=== PATIENT | female | born 1935 | race Caucasian/White ===

== ENCOUNTER 2016-09-22 16:59 | Emergency (ER) | payer MEDICARE ==
[~2016-09-22] VITALS: Ht 154.9 cm; Wt 48.9 kg
[~2016-09-22 16:59] MED LIST: NO KNOWN MEDS
[2016-09-22 17:02] VITALS: Ht 154.9 cm; Wt 48.9 kg
--- OUTSIDE RECORDS SUMMARY | 2016-09-22 17:03 | XMS REPORT | Continuity of Care Document ---
Author Author Arnulfo VASQUEZ, [facility] Address [address] [place] [id number] Phone Unavailable Payers Payer name Insurance type Covered constitution party ID Authorization(s) Unknown Problems Condition Effective Dates (start - stop) Clinical Status Other dyspnea and respiratory abnormality - *Worse Pneumonia - *Acute COPD - *Stable Thrush - *Acute Sepsis - *Resolved COPD - *Stable Pneumonia Vaccine - Pneumonia - Improved Cellulitis and abscess of leg, except foot - *Acute Edema - *Chronic Skin ulcer of ankle - *Acute Leg pain, left - *Acute Family History Family Member Diagnosis Age At Onset Status (Unknown) heavy smoker Yes Social History Social History Element Description Quantity Unknown Allergies, Adverse Reactions, Alerts Substance Reaction Severity Status Unknown Medications Medication Instructions Dosage Effective Dates (start - stop) Status Advair Diskus 250 mcg-50 mcg/dose powder for inhalation inhale 1 puff by inhalation route 2 times every day in the morning and evening approximately 12 hours apart 0 - Active cephalexin 500 mg capsule take 1 capsule (500MG) by oral route every 8 hours 500 MG - Active Lasix 20 mg tablet take 1 tablet (20MG) by oral route every day 20 MG - Active Immunizations Vaccine Date Status Comments Pneumo (2 yrs or older)(PPV) completed tetanus toxoid completed - Note: tetanus toxoid 0.5cc IM given Results Test Name Date and Time Measure Units Reference Range Abnormal Flag Comments Unknown Vital Signs Date / Time: Height Weight Pulse Rate Blood Pressure Temperature /09:22:00 100.00 lbs 115 /min 108/56 mm[Hg] 98.1 F Procedures Procedure Date Unknown Encounters Encounter Location Date Patient Visit [facility] [place][note 3] Patient Visit [facility] Patient Visit [facility] Advance Directives Directive Effective Date Unknown
--- OUTSIDE RECORDS SUMMARY | 2016-09-22 17:03 | XMS REPORT | Continuity of Care Document ---
Author Author [facility] Organization [facility] Address Unknown Phone Unavailable Allergies Medications Problems Procedures Results Encounters ACCT No. Visit Date/Time Discharge Status Pt. Type Provider Facility Loc./Unit Complaint [id number] 08/22/2013 10:43:00 08/22/2013 23 :59:59 CLS Outpatient [id number] 08/06/2013 13:45:00 08/06/2013 23 :59:59 CLS Outpatient [id number] 07/21/2013 09:18:00 07/21/2013 23 :59:59 CLS Outpatient
--- OUTSIDE RECORDS SUMMARY | 2016-09-22 17:03 | XMS REPORT | Referral Summary ---
Author Author [facility] Organization [facility] Address Unknown Phone Unavailable Care Team Providers Care Customer Solutions Specialist Name Role Phone Yahaira Asif Primary Care Physician [phone] Encounter VC Date(s): 10/15/15 - 10/15/15 [facility], [address] [place] [address]- [place] Discharge Disposition: 01-Home or Self Care Attending Physician: Behzad Asif MD Admitting Physician: Behzad Asif MD Vital Signs Most recent to 1 oldest [Reference Range]: Temperature Tympanic 36.7 degC [36.6-38.1 degC] (10/15/15 8:50 AM) Peripheral Pulse 76 bpm Rate [60-100 bpm] (10/15/15 8:50 AM) Blood Pressure 138/80 mmHg [90-140/60-90 mmHg] (10/15/15 8:50 AM) Mean Arterial 99 mmHg Pressure, Cuff (10/15/15 8:50 AM) Problem List Condition Effective Dates Status Health Status Informant Adult idiopathic Active generalized osteoporosis(Confirm ed) At high risk for Active pneumonia(Confirmed) Bronchiectasis(Confi Active rmed) Cellulitis of left Active leg(Confirmed) Elevated Active BP(Confirmed) Hypercholesterolemia Active (Confirmed) Lymphedema(Confirmed Active ) Venous stasis Active dermatitis(Confirmed ) Pneumonia(Confirmed) Active Sepsis bilateral 05/23/13 Resolved crytpogenic, organizing pneumonia(Confirmed) Loss of Active weight(Confirmed) Allergies, Adverse Reactions, Alerts Substance Reaction Severity Status acetaminophen hives Active HYDROcodone hives Active Medications Daily Multivitamins oral tablet 1 tabs, Oral, Daily, One a Day for Women, 0 Refill(s) Start Date: 10/15/15 Status: Ordered ibuprofen 200 mg oral tablet 1 tabs, Oral, Daily, as needed for headache, 0 Refill(s) Start Date: 03/08/14 Status: Ordered Vitamin D3 2,000 Intl_Units, Oral, Daily, 0 Refill(s) Start Date: 09/27/14 Status: Ordered Results No data available for this section Immunizations Vaccine Date Refusal Reason influenza virus vaccine, inactivated 06/04/15 influenza virus vaccine, inactivated1 03/08/14 pneumococcal 13-valent conjugate vaccine 09/03/14 pneumococcal 23-polyvalent vaccine 08/06/13 tetanus toxoid 08/22/13 1Result Comment: [03/08/2014] See scanned document Procedures Procedure Date Related Diagnosis Body Site Vaginal hysterectomy1981 1bilateral oophorectomy; reason for the hysterectomy for fibroids Social History Social History Type Response Smoking Status Former smoker; Type: Cigarettes1 1quit 30 yrs ago Assessment and Plan Extracted from: Title: Ambulatory Patient Education Author: Behzad Asif MD Date: 10/14 Family Medicine Cholesterol Cholesterol is a white, waxy, fat-like substance needed by your body in small amounts. The liver makes all the cholesterol you need. Cholesterol is carried from the liver by the blood through the blood vessels. Deposits of cholesterol ( plaque) may build up on blood vessel south. These make the arteries narrower and stiffer. Cholesterol plaques increase the risk for heart attack and stroke. You cannot feel your cholesterol level even if it is very high. The only way to know it is high is with a blood test. Once you know your cholesterol levels, you should keep a record of the test results. Work with your health care provider to keep your levels in the desired range. WHAT DO THE RESULTS MEAN? Total cholesterol is a rough measure of all the cholesterol in your blood. LDL is the so-called bad cholesterol. This is the type that deposits cholesterol in the south of the arteries. You want this level to be low. HDL is the good cholesterol because it cleans the arteries and carries the LDL away. You want this level to be high. Triglycerides are fat that the body can either burn for energy or store. High levels are closely linked to heart disease. WHAT ARE THE DESIRED LEVELS OF CHOLESTEROL? Total cholesterol below 200. LDL below 100 for people at risk, below 70 for those at very high risk. HDL above 50 is good, above 60 is best. Triglycerides below 150. HOW CAN I LOWER MY CHOLESTEROL? Diet. Follow your diet programs as directed by your health care provider. Choose fish or white meat chicken and turkey, roasted or baked. Limit fatty cuts of red meat, fried foods, and processed meats, such as sausage and lunch meats. Eat lots of fresh fruits and vegetables. Choose whole grains, beans, pasta, potatoes, and cereals. Use only small amounts of olive, corn, or canola oils. Avoid butter, mayonnaise, shortening, or palm kernel oils. Avoid foods with trans fats. Drink skim or nonfat milk and eat low-fat or nonfat yogurt and cheeses. Avoid whole milk, cream, ice cream, egg yolks, and full-fat cheeses. Healthy desserts include zabrina food cake, lisa snaps, animal crackers, hard candy, popsicles, and low-fat or nonfat frozen yogurt. Avoid pastries, cakes, pies, and cookies. Exercise. Follow your exercise programs as directed by your health care provider. A regular program helps decrease LDL and raise HDL. A regular program helps with weight control. Do things that increase your activity level like gardening, walking, or taking the stairs. Ask your health care provider about how you can be more active in your daily life. Medicine. Take medicine only as directed by your health care provider. Medicine may be prescribed by your health care provider to help lower cholesterol and decrease the risk for heart disease. If you have several risk factors, you may need medicine even if your levels are normal. This information is not intended to replace advice given to you by your health care provider. Make sure you discuss any questions you have with your health care provider. Document Released: 02/01/2002 Document Revised: 09/23/2014 Document Reviewed: [employer] Patient Information 2015 [employer] [facility]. No follow up information was provided. Extracted from: Title: multiple medical problems Author: Behzad Asif MD Date: 10/15/15 Impression and Plan Diagnosis Lymphedema (HQI63-CL I89.0, Working, Medical). Venous stasis dermatitis (MQW95-LZ I87.2, Working, Medical). Bronchiectasis (OLI00-GX J47.9, Working, Medical). Elevated BP (GSM69-NC R03.0, Working, Medical). Hypercholesterolemia (ARG03-MB E78.0, Working, Medical). 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 Plan: 1) Wear compression stockings, or elevate your legs frequently, or consider venous surgery on your left lower leg. 2) May continue your present meds. 3) See me in 2 months and as needed.. Orders Orders (Selected) Outpatient Orders Ordered Office Visit Level 4 Est 90771: . Dx/Order Association Plan: Diagnosis: Adult idiopathic generalized osteoporosis Comment: Ordered: Office Visit Level 4 Est 44861; 10/15/15 9:08:00 CDT, Lymphedema | Venous stasis dermatitis | Adult idiopathic generalized osteoporosis | Elevated BP | Bronchiectasis Diagnosis: Bronchiectasis Comment: Ordered: Office Visit Level 4 Est [id number]; 10/15/15 9:08:00 CDT, Lymphedema | Venous stasis dermatitis | Adult idiopathic generalized osteoporosis | Elevated BP | Bronchiectasis Diagnosis: Elevated BP Comment: Ordered: Office Visit Level 4 Est 45060; 10/15/15 9:08:00 CDT, Lymphedema | Venous stasis dermatitis | Adult idiopathic generalized osteoporosis | Elevated BP | Bronchiectasis Diagnosis: Hypercholesterolemia Comment: Diagnosis: Lymphedema Comment: Ordered: Office Visit Level 4 Est 55496; 10/15/15 9:08:00 CDT, Lymphedema | Venous stasis dermatitis | Adult idiopathic generalized osteoporosis | Elevated BP | Bronchiectasis Diagnosis: Venous stasis dermatitis Comment: Ordered: Office Visit Level 4 Est 20204; 10/15/15 9:08:00 CDT, Lymphedema | Venous stasis dermatitis | Adult idiopathic generalized osteoporosis | Elevated BP | Bronchiectasis End of Orders ."
--- OUTSIDE RECORDS SUMMARY | 2016-09-22 17:04 | XMS REPORT | Referral Summary ---
Author Author [facility], [facility] Organization [facility] Address Unknown Phone Unavailable Care Team Providers Care Engraver Set Up Operator Name Role Phone Yahaira Asif Primary Care Physician [phone] Encounter VC Date(s): 03/08/16 - 03/08/16 [facility], [address] [place] [address]- Discharge Diagnosis: Cellulitis of skin Discharge Diagnosis: Seborrheic keratosis Discharge Disposition: 01-Home or Self Care Attending Physician: Behzad Asif MD Admitting Physician: Behzad Asif MD Vital Signs Most recent to 1 oldest [Reference Range]: Temperature Tympanic 36.4 degC [36.6-38.1 degC] *LOW* (03/08/16 2:12 PM) Peripheral Pulse 72 bpm Rate [60-100 bpm] (03/08/16 2:12 PM) Blood Pressure 142/74 mmHg [90-140/60-90 mmHg] *HI* (03/08/16 2:12 PM) Problem List Condition Effective Dates Status Health Status Informant Adult idiopathic Active generalized osteoporosis(Confirm ed) At high risk for Active pneumonia(Confirmed) Bronchiectasis(Confi Active rmed) Cellulitis of left Active leg(Confirmed) Elevated Active BP(Confirmed) Lymphedema(Confirmed Active ) Venous stasis Active dermatitis(Confirmed ) Pneumonia(Confirmed) Active Hypercholesterolemia Active (Confirmed) Sepsis bilateral 05/23/13 Resolved crytpogenic, organizing pneumonia(Confirmed) Loss of Active weight(Confirmed) Allergies, Adverse Reactions, Alerts Substance Reaction Severity Status acetaminophen hives Active HYDROcodone hives Active Medications Daily Multivitamins oral tablet 1 tabs, Oral, Daily, One a Day for Women, 0 Refill(s) Start Date: 10/15/15 Status: Ordered erythromycin 0.5% ophthalmic ointment See Instructions, Apply to the skin infection beside left eye 4 times daily X 10 days, # 3 g, 1 Refill(s), Pharmacy: [facility] #[id number] Start Date: 03/08/16 Stop Date: 03/18/16 Status: Ordered ibuprofen 200 mg oral tablet 1 tabs, Oral, Daily, as needed for headache, 0 Refill(s) Start Date: 03/08/14 Status: Ordered Prednisol 1% ophthalmic solution 1 drops, Eye-Right, QID, 0 Refill(s) Start Date: 03/04/16 Status: Ordered Vitamin D3 2,000 Intl_Units, Oral, Daily, 0 Refill(s) Start Date: 09/27/14 Status: Ordered Results No data available for this section Immunizations Vaccine Date Refusal Reason influenza virus vaccine, inactivated 03/04/16 influenza virus vaccine, inactivated 06/04/15 influenza virus vaccine, inactivated1 03/08/14 pneumococcal 13-valent conjugate vaccine 09/03/14 pneumococcal 23-polyvalent vaccine 08/06/13 tetanus toxoid 08/22/13 1Result Comment: [03/08/2014] See scanned document Procedures Procedure Date Related Diagnosis Body Site Corneal transplant1 02/04/16 Cataract extraction and insertion of 2016 intraocular lens2 Vaginal hysterectomy3 1981 1OD 2OD--December 24, 2015 3bilateral oophorectomy; reason for the hysterectomy for fibroids Social History Social History Type Response Smoking Status Former smoker; Type: Cigarettes1 1quit 30 yrs ago Assessment and Plan Extracted from: Title: Ambulatory Patient Education Author: Behzad Asif MD Date: Home Health Care Cellulitis Cellulitis is an infection of the skin and the tissue beneath it. The infected area is usually red and tender. Cellulitis occurs most often in the arms and lower legs. CAUSES Cellulitis is caused by bacteria that enter the skin through cracks or cuts in the skin. The most common types of bacteria that cause cellulitis are staphylococci and streptococci. SIGNS AND SYMPTOMS Redness and warmth. Swelling. Tenderness or pain. Fever. DIAGNOSIS Your health care provider can usually determine what is wrong based on a physical exam. Blood tests may also be done. TREATMENT Treatment usually involves taking an antibiotic medicine. HOME CARE INSTRUCTIONS Take your antibiotic medicine as directed by your health care provider. Finish the antibiotic even if you start to feel better. Keep the infected arm or leg elevated to reduce swelling. Apply a warm cloth to the affected area up to 4 times per day to relieve pain. Take medicines only as directed by your health care provider. Keep all follow-up visits as directed by your health care provider. SEEK MEDICAL CARE IF: You notice red streaks coming from the infected area. Your red area gets larger or turns dark in color. Your bone or joint underneath the infected area becomes painful after the skin has healed. Your infection returns in the same area or another area. You notice a swollen bump in the infected area. You develop new symptoms. You have a fever. SEEK IMMEDIATE MEDICAL CARE IF: You feel very sleepy. You develop vomiting or diarrhea. You have a general ill feeling (malaise) with muscle aches and pains. MAKE SURE YOU: Understand these instructions. Will watch your condition. Will get help right away if you are not doing well or get worse. This information is not intended to replace advice given to you by your health care provider. Make sure you discuss any questions you have with your health care provider. Document Released: 02/16/2006 Document Revised: 05/30/2015 Document Reviewed: [employer] Interactive Patient Education 2016 [employer] No follow up information was provided. Extracted from: Title: cellulitis, SK Author: Behzad Asif MD Date: 03/08/16 Impression and Plan Diagnosis Cellulitis of skin (THI64-TB L03.211, Discharge, Medical). Seborrheic keratosis (XQX30-HY L82.1, Discharge, Medical). Plan: 1) Erythromycin eye ointment prescribed to the skin near your left eye QID X 10 days. 2) Continue your present meds otherwise. 3) See me as scheduled. 4) No treatment for the SK is indicated at this time.. Orders Orders (Selected) Outpatient Orders Ordered Office Visit Level 3 Est 45526: Prescriptions Prescribed erythromycin 0.5% ophthalmic ointment: See Instructions, Apply to the skin infection beside left eye 4 times daily X 10 days, 3 g, 1 Refill(s). Dx/Order Association Plan: Diagnosis: Cellulitis of skin Comment: Ordered: Office Visit Level 3 Est 77730; 03/08/16 17:15:00 CDT, Cellulitis of skin | Seborrheic keratosis Diagnosis: Seborrheic keratosis Comment: Ordered: Office Visit Level 3 Est 39881; 03/08/16 17:15:00 CDT, Cellulitis of skin | Seborrheic keratosis Additional Orders: Comment: Ordered: erythromycin 0.5% ophthalmic ointment,See Instructions, Apply to the skin infection beside left eye 4 times daily X 10 days, # 3 g, 1 Refill(s), Pharmacy: [facility] #[id number] End of Orders ."
--- OUTSIDE RECORDS SUMMARY | 2016-09-22 17:04 | XMS REPORT | Referral Summary ---
Author Author [facility], [facility] Medicine Organization [facility] Address Unknown Phone Unavailable Care Team Providers Care Material Liaison Name Role Phone Yahaira Asif Primary Care Physician [phone] Encounter VC Date(s): 06/04/15 - 06/04/15 [facility], [address] [place] [id number]- [place] Discharge Disposition: 01-Home or Self Care Attending Physician: Behzad Asif MD Admitting Physician: Behzad Asif MD Vital Signs Most recent to 1 oldest [Reference Range]: Temperature Tympanic 36.6 degC [36.6-38.1 degC] (06/04/15 10:41 AM) Peripheral Pulse 70 bpm Rate [60-100 bpm] (06/04/15 10:41 AM) Blood Pressure 142/78 mmHg [90-140/60-90 mmHg] *HI* (06/04/15 10:41 AM) SpO2 96 % (06/04/15 10:41 AM) Problem List Condition Effective Dates Status [...] acetaminophen hives Active HYDROcodone hives Active Medications ibuprofen 200 mg oral tablet 1 tabs, [...] Patient Education Author: Behzad Asif MD Date: 06/04 Family Medicine Bronchiectasis Bronchiectasis is a condition in which the airways (bronchi) are damaged and widened. This makes it difficult for the lungs to get rid of mucus. As a result , mucus gathers in the airways, and this often leads to lung infections. Infection can cause inflammation in the airways, which may further weaken and damage the bronchi. CAUSES Bronchiectasis may be present at (congenital) or may develop later in life. Sometimes there is no apparent cause. Some common causes include: Cystic fibrosis. Recurrent lung infections (such as pneumonia, tuberculosis, or fungal infections). Foreign bodies or other blockages in the lungs. Breathing in fluid, food, or other foreign objects (aspiration). SIGNS AND SYMPTOMS Common symptoms include: A daily cough that brings up mucus and lasts for more than 3 weeks. Frequent lung infections (such as pneumonia, tuberculosis, or fungal infections). Shortness of breath and wheezing. Weakness and fatigue. DIAGNOSIS Various tests may be done to help diagnose bronchiectasis. Tests may include: Chest X-rays or CT scans. Breathing tests to help determine how your lungs are working. Sputum cultures to check for infection. Blood tests and other tests to check for related diseases or causes, such as cystic fibrosis. TREATMENT Treatment varies depending on the severity of the condition. Medicines may be given to loosen the mucus to be coughed up (expectorants), to relax the muscles of the air passages (bronchodilators), or to prevent or treat infections ( antibiotics). Physical therapy methods may be recommended to help clear mucus from the lungs. For severe cases, surgery may be done to remove the affected part of the lung. HOME CARE INSTRUCTIONS Get plenty of rest. Only take [id number]-[id number] or prescription medicines as directed by your health care provider. If antibiotic medicines were prescribed, take them as directed. Finish them even if you start to feel better. Avoid sedatives and antihistamines unless otherwise directed by your health care provider. These medicines tend to thicken the mucus in the lungs. Perform any breathing exercises or techniques to clear the lungs as directed by your health care provider. Drink enough fluids to keep your urine clear or pale yellow. Consider using a cold steam vaporizer or humidifier in your room or home to help loosen secretions. If the cough is worse at night, try sleeping in a semi-upright position in a recliner or using a couple of pillows. Avoid cigarette smoke and lung irritants. If you smoke, quit. Stay inside when pollution and ozone levels are high. Stay current with vaccinations and immunizations. Follow up with your health care provider as directed. SEEK MEDICAL CARE IF: You cough up more thick, discolored mucus (sputum) that is yellow to green in color. You have a fever or persistent symptoms for more than 23 days. You cannot control your cough and are losing sleep. SEEK IMMEDIATE MEDICAL CARE IF: You cough up blood. You have chest pain or increasing shortness of breath. You have pain that is getting worse or is uncontrolled with medicines. You have a fever and your symptoms suddenly get worse. MAKE SURE YOU: Understand these instructions. Will watch your condition. Will get help right away if you are not doing well or get worse. Document Released: 03/05/2008 Document Revised: 05/14/2014 Document Reviewed: [facility] Patient Information [address] [facility]. This information is not intended to replace advice given to you by your health care provider. Make sure you discuss any questions you have with your health care provider. Preventive Medicine Bone Health Our bones do many things. They provide structure, protect organs, anchor muscles , and store calcium. Adequate calcium in your diet and weight-bearing physical activity help build strong bones, improve bone amounts, and may reduce the risk of weakening of bones (osteoporosis) later in life. PEAK BONE MASS By age 20, the average woman has acquired most of her skeletal bone mass. A large decline occurs in older adults which increases the risk of osteoporosis. In women this occurs around the time of menopause. It is important for young girls to reach their peak bone mass in order to maintain bone health throughout life. A person with high bone mass as a young adult will be more likely to have a higher bone mass later in life. Not enough calcium consumption and physical activity early on could result in a failure to achieve optimum bone mass in adulthood. OSTEOPOROSIS Osteoporosis is a disease of the bones. It is defined as low bone mass with deterioration of bone structure. Osteoporosis leads to an increase risk of fractures with falls. These fractures commonly happen in the wrist, hip, and spine. While men and women of all ages and background can develop osteoporosis, some of the risk factors for osteoporosis are: Female. White. Postmenopausal. Older adults. Small in body size. Eating a diet low in calcium. Physically inactive. Smoking. Use of some medications. Family history. CALCIUM Calcium is a mineral needed by the body for healthy bones, teeth, and proper function of the heart, muscles, and nerves. The body cannot produce calcium so it must be absorbed through food. Good sources of calcium include: Dairy products (low fat or nonfat milk, cheese, and yogurt). Dark green leafy vegetables (bok jim and broccoli). Calcium fortified foods (orange juice, cereal, bread, soy beverages, and tofu products). Nuts (almonds). Recommended amounts of calcium vary for individuals. RECOMMENDED CALCIUM INTAKES Age and Amount in mg per day Children 1 to 3 years / 700 mg Children 4 to 8 years / 1,000 mg Children 9 to 13 years / 1,300 mg Teens 14 to 18 years / 1,300 mg Adults 19 to 50 years / 1,000 mg Adult women 51 to 70 years / 1,200 mg Adults 71 years and older / 1,200 mg and teens / 1,300 mg and adults / 1,000 mg Vitamin D also plays an important role in healthy bone development. Vitamin D helps in the absorption of calcium. WEIGHT-BEARING PHYSICAL ACTIVITY Regular physical activity has many positive health benefits. Benefits include strong bones. Weight-bearing physical activity early in life is important in reaching peak bone mass. Weight-bearing physical activities cause muscles and bones to work against gravity. Some examples of weight bearing physical activities include: Walking, jogging, or running. Field Hockey. Jumping rope. Dancing. Soccer. Tennis or Racquetball. Stair climbing. Basketball. Hiking. Weight lifting. Aerobic fitness classes. Including weight-bearing physical activity into an exercise plan is a great way to keep bones healthy. Adults: Engage in at least 30 minutes of moderate physical activity on most, preferably all, days of the week. Children: Engage in at least 60 minutes of moderate physical activity on most, preferably all, days of the week. FOR MORE INFORMATION [place] Department of Agriculture, Center for Nutrition Policy and Promotion: www.cnpp.usda.gov National Osteoporosis Foundation: www.nof.org Document Released: 07/29/2004 Document Revised: 09/03/2013 Document Reviewed: [employer] Patient Information 2015 [employer]. This information is not intended to replace advice given to you by your health care provider. Make sure you discuss any questions you have with your health care provider. No follow up information was provided. Extracted from: Title: venous stasis dermatitis, Author: Behzad Asif MD Date: 06/04/15 lymphedema, elevated BP, osteoporosis Impression and Plan Diagnosis Lymphedema (NEA89-XT I89.0, Working, Medical). Venous stasis dermatitis (JXY00-DA I87.2, Working, Medical). Bronchiectasis (EWX19-OT J47.9, Working, Medical). Elevated BP (GWD86-PJ R03.0, Working, Medical). Hypercholesterolemia (BRR29-MA E78.0, Working, Medical). 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 Plan: 1) I recommend restarting the Alendronate for osteoporosis. 2) I recommend wearing your compression stockings during the day. 3) I recommend sanding your foot calluses twice a week. 4) Continue your same meds otherwise. 5) See me for a physical in 3 months. 6) Flu shot given today. . Orders Orders (Selected) Outpatient Orders Ordered Office Visit Level 4 Est 15635: . Dx/Order Association Plan: Diagnosis: Adult idiopathic generalized osteoporosis Comment: Ordered: Office Visit Level 4 Est 70193; 06/04/15 11:19:00 COLLET DRILLER, Lymphedema | Venous stasis dermatitis | Elevated BP | Adult idiopathic generalized osteoporosis Diagnosis: Bronchiectasis Comment: Diagnosis: Elevated BP Comment: Ordered: Office Visit Level 4 Est [id number]; 06/04/15 11:19:00 COLLET DRILLER, Lymphedema | Venous stasis dermatitis | Elevated BP | Adult idiopathic generalized osteoporosis Diagnosis: Hypercholesterolemia Comment: Diagnosis: Lymphedema Comment: Ordered: Office Visit Level 4 Est [id number]; 06/04/15 11:19:00 COLLET DRILLER, Lymphedema | Venous stasis dermatitis | Elevated BP | Adult idiopathic generalized osteoporosis Diagnosis: Venous stasis dermatitis Comment: Ordered: Office Visit Level 4 Est [id number]; 06/04/15 11:19:00 COLLET DRILLER, Lymphedema | Venous stasis dermatitis | Elevated BP | Adult idiopathic generalized osteoporosis End of Orders ."
--- OUTSIDE RECORDS SUMMARY | 2016-09-22 17:04 | XMS REPORT | Referral Summary ---
Author Author [facility] Organization [facility] Address Unknown Phone Unavailable Care Team Providers Care Lace Machine Operator Name Role Phone Yahaira Asif Primary Care Physician [phone] Encounter VC Date(s): 09/09/15 - 09/09/15 [facility], [address] [place] [phone] Discharge Disposition: 01-Home or Self Care Attending Physician: Behzad Asif MD Admitting Physician: Behzad Asif MD Vital Signs Most recent to 1 oldest [Reference Range]: Temperature Tympanic 36.5 degC [36.6-38.1 degC] *LOW* (09/09/15 8:58 AM) Peripheral Pulse 76 bpm Rate [60-100 bpm] (09/09/15 8:58 AM) Blood Pressure 168/72 mmHg [90-140/60-90 mmHg] *HI* (09/09/15 8:58 AM) Problem List Condition Effective Dates Status [...] Refill(s) Start Date: 09/27/14 Status: Ordered Results Hematology Most recent to 1 oldest [Reference Range]: WBC [4.8-10.8 5.1 10*3/uL 10*3/uL] (09/09/15 9:56 AM) RBC [4.00-5.20] 4.73 (09/09/15 9:56 AM) Hgb [12.0-16.0 14.0 gm/dL gm/dL] (09/09/15 9:56 AM) Hct [37.0-47.0 %] 42.7 % (09/09/15 9:56 AM) MCV [82.0-99.0 fL] 90.3 fL (09/09/15 9:56 AM) MCH [27.0-32.0 pg] 29.6 pg (09/09/15 9:56 AM) MCHC [32.0-36.0 32.8 gm/dL gm/dL] (09/09/15 9:56 AM) RDW [11.5-14.5 %] 13.5 % (09/09/15 9:56 AM) Platelet [150-400 164 10*3/uL 10*3/uL] (09/09/15 9:56 AM) MPV [8.8-14.8 fL] 9.6 fL (09/09/15 9:56 AM) Immature 0.0 % Granulocytes (09/09/15:56 AM) [0.0-1.0 %] Neutrophils [51-75 61 % %] (09/09/15 9:56 AM) Lymphocytes [20-46 26 % %] (09/09/15 9:56 AM) Monocytes [4-11 %] 11 % (09/09/15 9:56 AM) Eosinophils [0-4 %] 2 % (09/09/15 9:56 AM) Basophils [0-2 %] 1 % (09/09/15 9:56 AM) Neutro Absolute 3.09 10*3 [1.90-7.00 10*3] (09/09/15 9:56 AM) Lymph Absolute 1.33 10*3 [0.80-3.30 10*3] (09/09/15 9:56 AM) [place] Absolute 0.54 10*3 [0.30-1.00 10*3] (09/09/15 9:56 AM) Eos Absolute 0.12 10*3 [0.00-0.50 10*3] (09/09/15 9:56 AM) Baso Absolute 0.03 10*3 [0.00-0.20 10*3] (09/09/15 9:56 AM) Chemistry Most recent to 1 oldest [Reference Range]: Sodium Lvl [135-144 139 mEq/L mEq/L] (09/09/15 9:56 AM) Potassium Lvl 3.9 mEq/L [3.5-5.2 mEq/L] (09/09/15 9:56 AM) Chloride [99-111 99 mEq/L mEq/L] (09/09/15 9:56 AM) CO2 [22-31 mEq/L] 31 mEq/L (09/09/15 9:56 AM) AGAP [3-20] 9 (09/09/15 9:56 AM) BUN [10-20 mg/dL] 17 mg/dL (09/09/15 9:56 AM) Glucose Lvl [70-99 63 mg/dL mg/dL] *LOW* (09/09/15 9:56 AM) Creatinine Lvl 0.77 mg/dL [0.57-1.11 mg/dL] (09/09/15 9:56 AM) eGFR [>60 mL/min] >60 mL/min 1 (09/09/15 9:56 AM) Calcium Lvl 9.2 mg/dL [8.9-10.5 mg/dL] (09/09/15 9:56 AM) Albumin Lvl [3.4-4.8 4.0 gm/dL gm/dL] (09/09/15 9:56 AM) Total Protein 5.8 gm/dL [6.2-8.1 gm/dL] *LOW* (09/09/15 9:56 AM) Globulin [1.8-4.0 1.8 gm/dL gm/dL] (09/09/15 9:56 AM) ALT [0-55 U/L] 11 U/L (09/09/15 9:56 AM) AST [5-34 U/L] 19 U/L (09/09/15 9:56 AM) Alk Phos [40-150 99 U/L U/L] (09/09/15 9:56 AM) Bili Total [0.2-1.2 0.5 mg/dL mg/dL] (09/09/15 9:56 AM) Chol [0-199 mg/dL] 200 mg/dL *HI* (09/09/15 9:56 AM) Trig [0-149 mg/dL] 113 mg/dL (09/09/15 9:56 AM) HDL [40-84 mg/dL] 62 mg/dL (09/09/15 9:56 AM) LDL [0-130 mg/dL] 115 mg/dL (09/09/15 9:56 AM) VLDL Cholesterol 23 mg/dL [0-28 mg/dL] (09/09/15 9:56 AM) Cardiac Risk 3.2 [0.0-5.0] (09/09/15 9:56 AM) 1Result Comment: Multiply eGFR results by 1.21 for race. Urinalysis Most recent to 1 oldest [Reference Range]: UA Color Yellow (09/09/15 10:15 AM) UA Appear Cloudy *ABN* (09/09/15 10:15 AM) UA pH [5.0-8.0] 7.5 (09/09/15 10:15 AM) UA Leuk Est Pos 2+ [Negative] *ABN* (09/09/15 10:15 AM) UA Nitrite Negative [Negative] (09/09/15 10:15 AM) UA Protein Negative [Negative] (09/09/15 10:15 AM) UA Glucose Negative [Negative] (09/09/15 10:15 AM) UA Ketones Negative [Negative] (09/09/15 10:15 AM) UA Urobilinogen 0.2 mg/dL [<1.0 mg/dL] (09/09/15 10:15 AM) UA Bili [Negative] Negative (09/09/15 10:15 AM) UA Blood [Negative] Pos 1+ *ABN* (09/09/15 10:15 AM) UA Spec Grav 1.012 [1.003-1.030] (09/09/15 10:15 AM) Type Clean Catch (09/09/15 10:15 AM) UA WBC [0-4] 5-10 *ABN* (09/09/15 10:15 AM) UA RBC [0-4] 0-4 (09/09/15 10:15 AM) Epithelial Cells 5-10 (09/09/15 10:15 AM) UA Hyal Cast [0-3] 1-3 (09/09/15 10:15 AM) Immunizations Vaccine Date Refusal Reason influenza virus [...] Patient Education Author: Behzad Asif MD Date: 09/08 Family Medicine Bronchiectasis Bronchiectasis is a condition [...] INSTRUCTIONS Get plenty of rest. Only take [id number] or prescription medicines as directed by your [...] with your health care provider. Document Released: 03/05/2008 Document Revised: 05/14/2014 Document Reviewed: [facility] Patient Information 2015 [employer]. Preventive Medicine Bone Health Our bones do [...] and Promotion: www.cnpp.usda.gov National Osteoporosis Foundation: www.nof.org This information is not intended to replace advice given to you by your health care provider. Make sure you discuss any questions you have with your health care provider. Document Released: 07/29/2004 Document Revised: 09/03/2013 Document Reviewed: [employer] Patient Information 2015 [employer] [facility]. No follow up information was provided. Extracted from: Title: CRMMP Author: Behzad Asif MD Date: 09/09/15 Impression and Plan Diagnosis Bronchiectasis (IQL31-CE J47.9, Working, Medical). Lymphedema (WHR75-WS I89.0, Working, Medical). Elevated BP (MLG14-EU R03.0, Working, Medical). Hypercholesterolemia (RKM72-QJ E78.0, Working, Medical). Adult idiopathic generalized osteoporosis (XOM88-NT M81.8, Working, Medical). Venous stasis dermatitis (FXK89-CN I87.2, Working, Medical). Colon cancer screening (HBU98-QF Z12.11, Working, Medical). Plan: 1) I recommend the use of analilia wraps to both lower legs: on in the AM and off at bedtime. 2) Continue to use Vaseline to the skin of your lower legs daily, to help reduce skin cracking and bleeding. 3) You weren't interested in mammograms or another colonoscopy. 4) You weren't interested in medication for your osteoporosis at this time. 5) I recommend getting the Shingles vaccine and the Twinrix (hepatitis A and B ) vaccine series at [facility]. 6) Nonfasting lab ordered today. 7) Continue your present meds. 8) See me in 3 months for re-evaluation of your BP. Check your BP twice a week somewhere and write these numbers down and bring to your appointment. 9) Healthy diet and daily exercise helps most things.. Orders Orders (Selected) Outpatient Orders Ordered Office Visit Level 5 Est 53289: Future (On Hold) CBC w/ Differential: CMP: Fasting Lipid Profile: Occult Blood X 3, Stool: Routine Urinalysis: Vitamin D 25 OH: . Dx/Order Association Plan: Diagnosis: Adult idiopathic generalized osteoporosis Comment: Ordered: Office Visit Level 5 Est 45521; 09/09/15 8:59:00 CDT, Adult idiopathic generalized osteoporosis | Bronchiectasis | Elevated BP | Hypercholesterolemia | Lymphedema Diagnosis: Bronchiectasis Comment: Ordered: Office Visit Level 5 Est 08075; 09/09/15 8:59:00 CDT, Adult idiopathic generalized osteoporosis | Bronchiectasis | Elevated BP | Hypercholesterolemia | Lymphedema Diagnosis: Colon cancer screening Comment: Diagnosis: Elevated BP Comment: Ordered: Office Visit Level 5 Est 04603; 09/09/15 8:59:00 CDT, Adult idiopathic generalized osteoporosis | Bronchiectasis | Elevated BP | Hypercholesterolemia | Lymphedema Diagnosis: Hypercholesterolemia Comment: Ordered: Office Visit Level 5 Est 88643; 09/09/15 8:59:00 CDT, Adult idiopathic generalized osteoporosis | Bronchiectasis | Elevated BP | Hypercholesterolemia | Lymphedema Diagnosis: Lymphedema Comment: Ordered: Office Visit Level 5 Est [id number]; 09/09/15 8:59:00 CDT, Adult idiopathic generalized osteoporosis | Bronchiectasis | Elevated BP | Hypercholesterolemia | Lymphedema Diagnosis: Venous stasis dermatitis Comment: Diagnosis: Colon cancer screening Comment: Diagnosis: Adult idiopathic generalized osteoporosis Comment: Diagnosis: Lymphedema Comment: Diagnosis: Hypercholesterolemia Comment: Diagnosis: Elevated BP Comment: Diagnosis: Adult idiopathic generalized osteoporosis Comment: Diagnosis: Venous stasis dermatitis Comment: Diagnosis: Elevated BP Comment: Diagnosis: Adult idiopathic generalized osteoporosis Comment: Diagnosis: Bronchiectasis Comment: Diagnosis: Lymphedema Comment: Diagnosis: Elevated BP Comment: Diagnosis: Hypercholesterolemia Comment: End of Orders ."
--- OUTSIDE RECORDS SUMMARY | 2016-09-22 17:04 | XMS REPORT | Referral Summary ---
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 Discharge Disposition: 01-Home or Self Care Attending Physician: Behzad Asif MD Admitting Physician: Behzad Asif MD Vital Signs Most recent to 1 oldest [Reference Range]: Temperature Tympanic 36.5 degC [36.6-38.1 degC] *LOW* (03/10/16 6:59 AM) Peripheral Pulse 74 bpm Rate [60-100 bpm] (03/10/16 6:59 AM) Blood Pressure 140/64 mmHg [90-140/60-90 mmHg] (03/10/16 6:59 AM) SpO2 97 % (03/10/16 6:59 AM) Problem List Condition Effective Dates Status [...] acetaminophen hives Active HYDROcodone hives Active Medications alendronate 70 mg oral tablet 70 mg 1 tabs, Oral, qWeek, # 12 tabs, 3 Refill(s), Pharmacy: [facility] # [id number], 1 tabs Oral qWeek Start Date: 03/10/16 Status: Ordered Daily Multivitamins oral tablet 1 tabs, Oral, Daily, One a Day for Women, 0 Refill(s) Start Date: 10/15/15 Status: Ordered erythromycin 0.5% ophthalmic ointment See Instructions, Apply to the skin infection beside left eye 4 times daily X 10 days, # 3 g, 1 Refill(s), Pharmacy: [facility] #[id number] Start Date: 03/08/16 Stop Date: 03/18/16 Status: [...] Patient Education Author: Behzad Asif MD Date: Obstetrics and Gynecology Osteoporosis Osteoporosis is the thinning and loss of density in the bones. Osteoporosis makes the bones more brittle, fragile, and likely to break (fracture). Over time , osteoporosis can cause the bones to become so weak that they fracture after a simple fall. The bones most likely to fracture are the bones in the hip, wrist, and spine. CAUSES The exact cause is not known. RISK FACTORS Anyone can develop osteoporosis. You may be at greater risk if you have a family history of the condition or have poor nutrition. You may also have a higher risk if you are: Female. 50 years old or older. A smoker. Not physically active. White or . Slender. SIGNS AND SYMPTOMS A fracture might be the first sign of the disease, especially if it results from a fall or injury that would not usually cause a bone to break. Other signs and symptoms include: Low back and neck pain. Stooped posture. Height loss. DIAGNOSIS To make a diagnosis, your health care provider may: Take a medical history. Perform a physical exam. Order tests, such as: A bone mineral density test. A dual-energy X-ray absorptiometry test. TREATMENT The goal of osteoporosis treatment is to strengthen your bones to reduce your risk of a fracture. Treatment may involve: Making lifestyle changes, such as: Eating a diet rich in calcium. Doing weight-bearing and muscle-strengthening exercises. Stopping tobacco use. Limiting alcohol intake. Taking medicine to slow the process of bone loss or to increase bone density. Monitoring your levels of calcium and vitamin D. HOME CARE INSTRUCTIONS Include calcium and vitamin D in your diet. Calcium is important for bone health, and vitamin D helps the body absorb calcium. Perform weight-bearing and muscle-strengthening exercises as directed by your health care provider. Do not use any tobacco products, including cigarettes, chewing tobacco, and electronic cigarettes. If you need help quitting, ask your health care provider. Limit your alcohol intake. Take medicines only as directed by your health care provider. Keep all follow-up visits as directed by your health care provider. This is important. Take precautions at home to lower your risk of falling, such as: Keeping rooms well lit and clutter free. Installing safety rails on stairs. Using rubber mats in the bathroom and other areas that are often wet or slippery. SEEK IMMEDIATE MEDICAL CARE IF: You fall or injure yourself. This information is not intended to replace advice given to you by your health care provider. Make sure you discuss any questions you have with your health care provider. Document Released: 02/16/2006 Document Revised: 05/30/2015 Document Reviewed: [employer] Interactive Patient Education 2016 [employer] No follow up information was provided. Extracted from: Title: osteoporosis and other Author: Behzad Asif MD Date: 03/10/16 problems Impression and Plan Diagnosis Adult idiopathic generalized osteoporosis (HSI74-CO M81.8, Discharge, Medical). Symptomatic varicose veins (ZON69-LU I83.899, Discharge, Medical). Venous stasis dermatitis (FIL70-YU I83.10, Discharge, Medical). Plan: 1) Start Alendronate once a week. Instructed how to take it. 2) Drink or eat dairy at least 4 times every day. 3) Continue your present meds. 4) See Dr. Hernandez for your symptomatic varicose veins (especially the left leg). 5) See me in 6 months and as needed.. Orders Orders (Selected) Outpatient Orders Ordered Office Visit Level 3 Est 40129: Prescriptions Prescribed alendronate 70 mg oral tablet: 70 mg=1 tabs, Oral, qWeek, 12 tabs, 3 Refill(s). Dx/Order Association Plan: Diagnosis: Adult idiopathic generalized osteoporosis Comment: Ordered: Office Visit Level 3 Est 85216; 03/10/16 11:46:00 CDT, Adult idiopathic generalized osteoporosis | Symptomatic varicose veins | Venous stasis dermatitis Diagnosis: Symptomatic varicose veins Comment: Ordered: Office Visit Level 3 Est 85526; 03/10/16 11:46:00 CDT, Adult idiopathic generalized osteoporosis | Symptomatic varicose veins | Venous stasis dermatitis Diagnosis: Venous stasis dermatitis Comment: Ordered: Office Visit Level 3 Est 10917; 03/10/16 11:46:00 CDT, Adult idiopathic generalized osteoporosis | Symptomatic varicose veins | Venous stasis dermatitis Additional Orders: Comment: Ordered: alendronate 70 mg oral tablet,70 mg 1 tabs, Oral, qWeek, # 12 tabs, 3 Refill(s), Pharmacy: [facility] #[id number], 1 tabs Oral qWeek End of Orders ."
--- OUTSIDE RECORDS SUMMARY | 2016-09-22 17:04 | XMS REPORT | Referral Summary ---
Author Author [facility] [place], [facility] Organization [facility] [place] [facility] Address Unknown Phone Unavailable Care Team Providers Care Training And Development Officer Name Role Phone Yahaira Asif Primary Care Physician [phone] 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 Discharge Diagnosis: Paresthesia of left foot Discharge Diagnosis: Bronchiectasis Discharge Diagnosis: Lymphedema of left leg Discharge Diagnosis: Right calf pain Discharge Diagnosis: Chronic venous stasis dermatitis Discharge Diagnosis: Symptomatic varicose veins Discharge Diagnosis: Hypercholesterolemia Discharge Diagnosis: Need for influenza vaccination Discharge Disposition: 01-Home or Self Care Attending Physician: Behzad Asif MD Admitting Physician: Behzad Asif MD Vital Signs Most recent to 1 oldest [Reference Range]: Temperature Tympanic 35.7 degC [36.6-38.1 degC] *LOW* (03/04/16 7:19 AM) Peripheral Pulse 72 bpm Rate [60-100 bpm] (03/04/16 7:19 AM) Blood Pressure 132/60 mmHg [90-140/60-90 mmHg] (03/04/16 7:19 AM) Problem List Condition Effective Dates Status [...] Refill(s) Start Date: 09/27/14 Status: Ordered Results Coagulation Most recent to 1 oldest [Reference Range]: D-Dimer [0-500 271 ng{FEU}/mL ng{FEU}/mL] (03/04/16 8:21 AM) Immunizations Vaccine Date Refusal Reason influenza [...] Patient Education Author: Behzad Asif MD Date: Family Medicine Bronchiectasis Bronchiectasis is a condition [...] INSTRUCTIONS Get plenty of rest. Only take brom-[id number] or prescription medicines as directed by your [...] Released: 03/05/2008 Document Revised: 05/14/2014 Document Reviewed: [employer] Interactive Patient Education 2016 [employer]. Preventive Medicine Bone Health Bones protect organs, store calcium, and anchor muscles. Good health habits, such as eating nutritious foods and exercising regularly, are important for maintaining healthy bones. They can also help to prevent a condition that causes bones to lose density and become weak and brittle (osteoporosis). WHY IS BONE MASS IMPORTANT? Bone mass refers to the amount of bone tissue that you have. The higher your bone mass, the stronger your bones. An important step toward having healthy bones throughout life is to have strong and dense bones during childhood. A young adult who has a high bone mass is more likely to have a high bone mass later in life. Bone mass at its greatest it is called peak bone mass. A large decline in bone mass occurs in older adults. In women, it occurs about the time of menopause. During this time, it is important to practice good health habits, because if more bone is lost than what is replaced, the bones will become less healthy and more likely to break (fracture). If you find that you have a low bone mass, you may be able to prevent osteoporosis or further bone loss by changing your diet and lifestyle. HOW CAN I FIND OUT IF MY BONE MASS IS LOW? Bone mass can be measured with an X-ray test that is called a bone mineral density (BMD) test. This test is recommended for all women who are age 65 or older. It may also be recommended for men who are age 70 or older, or for people who are more likely to develop osteoporosis due to: Having bones that break easily. Having a long-term disease that weakens bones, such as kidney disease or rheumatoid arthritis. Having menopause earlier than normal. Taking medicine that weakens bones, such as steroids, thyroid hormones, or hormone treatment for breast cancer or prostate cancer. Smoking. Drinking three or more alcoholic drinks each day. WHAT ARE THE NUTRITIONAL RECOMMENDATIONS FOR HEALTHY BONES? To have healthy bones, you need to get enough of the right minerals and vitamins. Most nutrition experts recommend getting these nutrients from the foods that you eat. Nutritional recommendations vary from person to person. Ask your health care provider what is healthy for you. Here are some general guidelines. Calcium Recommendations Calcium is the most important (essential) mineral for bone health. Most people can get enough calcium from their diet, but supplements may be recommended for people who are at risk for osteoporosis. Good sources of calcium include: Dairy products, such as low-fat or nonfat milk, cheese, and yogurt. Dark green leafy vegetables, such as bok jim and broccoli. Calcium-fortified foods, such as orange juice, cereal, bread, soy beverages, and tofu products. Nuts, such as almonds. Follow these recommended amounts for daily calcium intake: Children, age 13: 700 mg. Children, age 48: 1,000 mg. Children, age 913: 1,300 mg. Teens, age 1418: 1,300 mg. Adults, age 1950: 1,000 mg. Adults, age 5170: Men: 1,000 mg. Women: 1,200 mg. Adults, age 71 or older: 1,200 mg. and females: Teens: 1,300 mg. Adults: 1,000 mg. Vitamin D Recommendations Vitamin D is the most essential vitamin for bone health. It helps the body to absorb calcium. Sunlight stimulates the skin to make vitamin D, so be sure to get enough sunlight. If you live in a cold climate or you do not get outside often, your health care provider may recommend that you take vitamin D supplements. Good sources of vitamin D in your diet include: Egg yolks. Saltwater fish. Milk and cereal fortified with vitamin D. Follow these recommended amounts for daily vitamin D intake: Children and teens, age 118: 600 international units. Adults, age 50 or younger: 315255 international units. Adults, age 51 or older: 8001,000 international units. Other Nutrients Other nutrients for bone health include: Phosphorus. This mineral is found in meat, poultry, dairy foods, nuts, and legumes. The recommended daily intake for adult men and adult women is 700 mg. Magnesium. This mineral is found in seeds, nuts, dark green vegetables, and legumes. The recommended daily intake for adult men is 963838 mg. For adult women, it is 720392 mg. Vitamin K. This vitamin is found in green leafy vegetables. The recommended daily intake is 120 mg for adult men and 90 mg for adult women. WHAT TYPE OF PHYSICAL ACTIVITY IS BEST FOR BUILDING AND MAINTAINING HEALTHY BONES? Weight-bearing and strength-building activities are important for building and maintaining peak bone mass. Weight-bearing activities cause muscles and bones to work against gravity. Strength-building activities increases muscle strength that supports bones. Weight-bearing and muscle-building activities include: Walking and hiking. Jogging and running. Dancing. Gym exercises. Lifting weights. Tennis and racquetball. Climbing stairs. Aerobics. Adults should get at least 30 minutes of moderate physical activity on most days. Children should get at least 60 minutes of moderate physical activity on most days. Ask your health care provide what type of exercise is best for you. WHERE CAN I FIND MORE INFORMATION? For more information, check out the following websites: National Osteoporosis Foundation: http://nof.org/learn/basics National Institutes of Health: http://www.niams.nih.gov/Health_Info/Bone/ Bone_Health/bone_health_for_life.asp This information is not intended to replace advice given to you by your health care provider. Make sure you discuss any questions you have with your health care provider. Document Released: 07/29/2004 Document Revised: 09/23/2015 Document Reviewed: [employer] Interactive Patient Education 2016 [employer] No follow up information was provided. Extracted from: Title: multiple problems Author: Behzad Asif MD Date: 03/04/16 Impression and Plan Diagnosis Symptomatic varicose veins (PSG79-UC I83.819, Discharge, Medical). Bronchiectasis (IJA47-EY J47.9, Discharge, Medical). Hypercholesterolemia (QZG03-SD E78.00, Discharge, Medical). Adult idiopathic generalized osteoporosis (GRF88-RP M81.8, Discharge, Medical). Lymphedema of left leg (XCQ07-CL I89.0, Discharge, Medical). Right calf pain (CJS37-FW M79.661, Discharge, Medical). Chronic venous stasis dermatitis (REJ62-IY I83.12, Discharge, Medical). Paresthesia of left foot (TCM88-VL R20.2, Discharge, Medical). Need for influenza vaccination (JOS65-WN Z23, Discharge, Medical). Plan: 1) Flu shot given today. 2) I advise compression stockings (you refused) or analilia wraps to your legs every day (you refused). 3) Lymphedema treatment by PT offered (you refused). 4) Avoid soap and water to your legs. 5) Use Mineral Oil or plain Vaseline to your skin of the legs daily. 6) See Dr. Hernandez about other treatments of your lymphedema and symptomatic varicose veins. 7) Lab ordered today to rule out DVT. 8) Keep your appointment with me for next week, and as needed. 9) No changes ordered to your routine meds at this time.. Orders Orders (Selected) Outpatient Orders Ordered Office Visit Level 4 Est 66938: Completed D-Dimer: influenza virus vaccine, inactivated: 0.5 mL, IntraMuscular, Once. Dx/Order Association Plan: Diagnosis: Adult idiopathic generalized osteoporosis Comment: Ordered: Office Visit Level 4 Est 58551; 03/04/16 7:56:00 CDT, Lymphedema of left leg | Right calf pain | Chronic venous stasis dermatitis | Paresthesia of left foot | Adult idiopathic generalized osteoporosis | Bronchiectasis | Hypercholesterolemia Diagnosis: Bronchiectasis Comment: Ordered: Office Visit Level 4 Est 86614; 03/04/16 7:56:00 CDT, Lymphedema of left leg | Right calf pain | Chronic venous stasis dermatitis | Paresthesia of left foot | Adult idiopathic generalized osteoporosis | Bronchiectasis | Hypercholesterolemia Diagnosis: Chronic venous stasis dermatitis Comment: Ordered: Office Visit Level 4 Est 06516; 03/04/16 7:56:00 CDT, Lymphedema of left leg | Right calf pain | Chronic venous stasis dermatitis | Paresthesia of left foot | Adult idiopathic generalized osteoporosis | Bronchiectasis | Hypercholesterolemia Diagnosis: Hypercholesterolemia Comment: Ordered: Office Visit Level 4 Est 83250; 03/04/16 7:56:00 CDT, Lymphedema of left leg | Right calf pain | Chronic venous stasis dermatitis | Paresthesia of left foot | Adult idiopathic generalized osteoporosis | Bronchiectasis | Hypercholesterolemia Diagnosis: Lymphedema of left leg Comment: Ordered: Office Visit Level 4 Est 76241; 03/04/16 7:56:00 CDT, Lymphedema of left leg | Right calf pain | Chronic venous stasis dermatitis | Paresthesia of left foot | Adult idiopathic generalized osteoporosis | Bronchiectasis | Hypercholesterolemia Other status: D-Dimer; Blood, Routine Collect, 10/13/16 8:16:00 CDT, Once, Stop date 03/04/16 8:16:00 CDT, Lab Collect, Right calf pain | Lymphedema of left leg (Completed) Diagnosis: Need for influenza vaccination Comment: Other status: influenza virus vaccine, inactivated; 0.5 mL, IntraMuscular, Once, First Dose: 03/04/16 8:04:00 CDT, Stop Date: 03/04/16 8:04: 00 CDT (Completed) Diagnosis: Paresthesia of left foot Comment: Ordered: Office Visit Level 4 Est 48296; 03/04/16 7:56:00 CDT, Lymphedema of left leg | Right calf pain | Chronic venous stasis dermatitis | Paresthesia of left foot | Adult idiopathic generalized osteoporosis | Bronchiectasis | Hypercholesterolemia Diagnosis: Right calf pain Comment: Ordered: Office Visit Level 4 Est 19689; 03/04/16 7:56:00 CDT, Lymphedema of left leg | Right calf pain | Chronic venous stasis dermatitis | Paresthesia of left foot | Adult idiopathic generalized osteoporosis | Bronchiectasis | Hypercholesterolemia Other status: D-Dimer; Blood, Routine Collect, 03/04/16 8:16:00 CDT, Once, Stop date 03/04/16 8:16:00 CDT, Lab Collect, Right calf pain | Lymphedema of left leg (Completed) Diagnosis: Symptomatic varicose veins Comment: Additional Orders: Comment: Modified: Prednisol 1% ophthalmic solution,1 drops, Eye-Right, QID , 0 Refill(s) End of Orders ."
--- OUTSIDE RECORDS SUMMARY | 2016-09-22 17:04 | XMS REPORT | Continuity of Care Document ---
Author Author Georgi VASQUEZ, Kimmy Nolan [facility] Address [address] [place] [address] Phone Payers Payer name Insurance type Covered republican ID Authorization(s) Unknown Problems Condition Effective Dates (start - stop) Clinical Status Pneumonia - *Acute COPD - *Stable Thrush - *Acute Sepsis - *Resolved COPD - *Stable Pneumonia Vaccine - Pneumonia - Improved Cellulitis and abscess of leg, except foot - *Acute Edema - *Chronic Skin ulcer of ankle - *Acute Leg pain, left - *Acute Other dyspnea and respiratory abnormality - *Worse Family History Family Member Diagnosis Age At [...] approximately 12 hours apart 0 - Active prednisone 20 mg tablet take 2 Tablet (40MG) by oral route every day 40 MG - No Longer Active clotrimazole 10 mg girma take 1 tablet (10MG) by oral route 5 times every day dissolved slowly in the mouth 10 MG - No Longer Active cephalexin 500 mg capsule take 1 [...] Height Weight Pulse Rate Blood Pressure Temperature /13:50:00 61.00 in 102.50 lbs 80 /min 130/70 mm[Hg] 98.2 F Procedures Procedure Date PNEUMOCOCCAL VACCINE,ADULT,SQ OR IM ADMINISTRATION OF PNEUMONIA SHOT Encounters Encounter Location Date Patient Visit [facility] Patient Visit [facility] Patient Visit [facility] Advance Directives Directive Effective Date Unknown
--- OUTSIDE RECORDS SUMMARY | 2016-09-22 17:04 | XMS REPORT | Referral Summary ---
Author Organization Unknown Address Unknown Phone Unavailable Care Team Providers Care Manager Nursing Home Name Role Phone Yahaira Asif Primary Care Physician [phone] Encounter VC Date(s): 09/03/14 - 09/03/14 [facility], Sudeep, Family [address] [place] [address] Discharge Diagnosis: Bronchiectasis Discharge Diagnosis: Lymphedema Discharge Diagnosis: At high risk for pneumonia Discharge Diagnosis: Menopausal state Discharge Diagnosis: Colon cancer screening Discharge Diagnosis: Loss of weight Discharge Diagnosis: Status post hysterectomy Discharge Diagnosis: Venous stasis dermatitis Discharge Diagnosis: Elevated BP Discharge Disposition: Home or Self Care Attending Physician: Behzad Asif MD Admitting Physician: Behzad Asif MD Vital Signs Most recent to 1 oldest [Reference Range]: Temperature Tympanic 36.1 degC [36.6-38.1 degC] *LOW* (09/03/14 7:13 AM) Peripheral Pulse 80 bpm Rate [60-100 bpm] (09/03/14 7:13 AM) Blood Pressure 145/72 mmHg [90-140/60-90 mmHg] *HI* (09/03/14 7:13 AM) Problem List Condition Effective Dates Status Health Status Informant At high risk for Active pneumonia(Confirmed) Bronchiectasis(Confi Active rmed) Cellulitis of left Active leg(Confirmed) Elevated Active BP(Confirmed) Lymphedema(Confirmed Active ) Pneumonia(Confirmed) Active Sepsis bilateral 05/23/13 Resolved crytpogenic, organizing pneumonia(Confirmed) Venous stasis Active dermatitis(Confirmed ) Loss of Active weight(Confirmed) Allergies, Adverse Reactions, Alerts Substance Reaction Severity Status acetaminophen hives Active HYDROcodone hives Active Medications ibuprofen 200 mg oral tablet 1 tabs, Oral, Daily, as needed for headache, 0 Refill(s) Start Date: 03/08/14 Status: Ordered Results Hematology Most recent to 1 oldest [Reference Range]: WBC [4.8-10.8 K/uL] 4.6 K/uL *LOW* (09/03/14 8:42 AM) RBC [4.00-5.20 M/uL] 4.84 M/uL (09/03/14 8:42 AM) Hgb [12.0-16.0 14.3 gm/dL gm/dL] (09/03/14 8:42 AM) Hct [37.0-47.0 %] 43.3 % (09/03/14 8:42 AM) MCV [82.0-99.0 fL] 89.5 fL (09/03/14 8:42 AM) MCH [27.0-32.0 pg] 29.5 pg (09/03/14 8:42 AM) MCHC [32.0-36.0 33.0 gm/dL gm/dL] (09/03/14 8:42 AM) RDW [11.5-14.5 %] 14.1 % (09/03/14 8:42 AM) Platelet [150-400 175 K/uL K/uL] (09/03/14 8:42 AM) MPV [8.8-14.8 fL] 9.7 fL (09/03/14 8:42 AM) Immature 0.2 % Granulocytes (09/03/14 8:42 AM) [0.0-1.0 %] Neutrophils [51-75 59 % %] (09/03/14 8:42 AM) Lymphocytes [20-46 29 % %] (09/03/14 8:42 AM) Monocytes [4-11 %] 10 % (09/03/14 8:42 AM) Eosinophils [0-4 %] 1 % (09/03/14 8:42 AM) Basophils [0-2 %] 1 % (09/03/14 8:42 AM) Neutro Absolute 2.71 THOUS [1.90-7.00 THOUS] (09/03/14 8:42 AM) Lymph Absolute 1.31 THOUS [0.80-3.30 THOUS] (09/03/14 8:42 AM) [place] Absolute 0.48 THOUS [0.30-1.00 THOUS] (09/03/14 8:42 AM) Eos Absolute 0.06 THOUS [0.00-0.50 THOUS] (09/03/14 8:42 AM) Baso Absolute 0.03 THOUS [0.00-0.20 THOUS] (09/03/14 8:42 AM) Chemistry Most recent to 1 oldest [Reference Range]: Sodium Lvl [135-144 142 mEq/L mEq/L] (09/03/14 8:42 AM) Potassium Lvl 4.8 mEq/L [3.5-5.2 mEq/L] (09/03/14 8:42 AM) Chloride [99-111 105 mEq/L mEq/L] (09/03/14 8:42 AM) CO2 [22-31 mEq/L] 30 mEq/L (09/03/14 8:42 AM) AGAP [3-20] 7 (09/03/14 8:42 AM) BUN [10-20 mg/dL] 14 mg/dL (09/03/14 8:42 AM) Glucose Lvl [70-99 82 mg/dL mg/dL] (09/03/14 8:42 AM) Creatinine Lvl 0.72 mg/dL [0.57-1.11 mg/dL] (09/03/14 8:42 AM) eGFR [>60 mL/min] >60 mL/min 1 (09/03/14 8:42 AM) Calcium Lvl 9.6 mg/dL [8.9-10.5 mg/dL] (09/03/14 8:42 AM) Albumin Lvl [3.4-4.8 4.0 gm/dL gm/dL] (09/03/14 8:42 AM) Total Protein 6.1 gm/dL [6.2-8.1 gm/dL] *LOW* (09/03/14 8:42 AM) Globulin [1.8-4.0 2.1 gm/dL gm/dL] (09/03/14 8:42 AM) ALT [0-55 unit/L] 10 unit/L (09/03/14 8:42 AM) AST [5-34 unit/L] 19 unit/L (09/03/14 8:42 AM) Alk Phos [40-150 104 unit/L unit/L] (09/03/14 8:42 AM) Bili Total [0.2-1.2 0.4 mg/dL mg/dL] (09/03/14 8:42 AM) Chol [0-199 mg/dL] 210 mg/dL *HI* (09/03/14 8:42 AM) Trig [0-149 mg/dL] 97 mg/dL (09/03/14 8:42 AM) HDL [40-84 mg/dL] 60 mg/dL (09/03/14 8:42 AM) LDL [0-130 mg/dL] 131 mg/dL *HI* (09/03/14 8:42 AM) VLDL Cholesterol 19 mg/dL [0-28 mg/dL] (09/03/14 8:42 AM) Cardiac Risk 3.5 [0.0-5.0] (09/03/14 8:42 AM) TSH [0.35-4.94] 2.03 (09/03/14 8:42 AM) 1Result Comment: Multiply eGFR results by 1.21 for race. Urinalysis Most recent to 1 oldest [Reference Range]: UA Color Yellow (09/03/14 8:42 AM) UA Appear Clear (09/03/14 8:42 AM) UA pH [5.0-8.0] 5.5 (09/03/14 8:42 AM) UA Leuk Est Pos 1+ [Negative] *ABN* (09/03/14 8:42 AM) UA Nitrite Negative [Negative] (09/03/14 8:42 AM) UA Protein Negative [Negative] (09/03/14 8:42 AM) UA Glucose Negative [Negative] (09/03/14 8:42 AM) UA Ketones Negative [Negative] (09/03/14 8:42 AM) UA Urobilinogen 0.2 mg/dL [<1.0 mg/dL] (09/03/14 8:42 AM) UA Bili [Negative] Negative (09/03/14 8:42 AM) UA Blood [Negative] Pos 1+ *ABN* (09/03/14 8:42 AM) UA Spec Grav 1.018 [1.003-1.030] (09/03/14 8:42 AM) Type Clean Catch (09/03/14 8:42 AM) UA RBC [0-2] 0-2 (09/03/14 8:42 AM) Epithelial Cells 0-2 (09/03/14 8:42 AM) Crystals Ca Ox (09/03/14 8:42 AM) UA Mucous Present (09/03/14 8:42 AM) Immunizations Vaccine Date Refusal Reason influenza virus vaccine, inactivated1 03/08/14 pneumococcal 13-valent conjugate vaccine 09/03/14 pneumococcal 13-valent conjugate vaccine 08/06/13 tetanus toxoid 08/22/13 1Result Comment: [03/08/2014] See scanned document Procedures Procedure Date Related Diagnosis Body Site Vaginal hysterectomy1981 1bilateral oophorectomy; reason for the hysterectomy for fibroids Social History Social History Type Response Smoking Status Former smoker; Type: Cigarettes1 1quit 30 yrs ago Assessment and Plan Extracted from: Title: Ambulatory Patient Education Author: Behzad Asif MD Date: 09/03 Family Medicine Bronchiectasis Bronchiectasis is a condition in which the airways (bronchi ) are damaged and widened. This makes it difficult for the lungs to get rid of mucus. As a result , mucus gathers in the airways, and this often leads to lung infections. Infection can cause inflammation in the airways, which may further weaken and damage the bronchi. CAUSES Bronchiectasis may be present at (congenital ) or may develop later in life. Sometimes there is no apparent cause. Some common causes include: Cystic fibrosis. Recurrent lung infections (such as pneumonia, tuberculosis, or fungal infections). Foreign bodies or other blockages in the lungs. Breathing in fluid, food, or other foreign objects (aspiration ). SIGNS AND SYMPTOMS Common symptoms include: A [...] loosen the mucus to be coughed up (expectorants ), to relax the muscles of the air passages (bronchodilators ), or to prevent or treat infections (antibiotics ). Physical therapy methods may be recommended to help clear mucus from the lungs. For severe cases, surgery may be done to remove the affected part of the lung. HOME CARE INSTRUCTIONS Get plenty of rest. Only take jfiz-zca-fytnuzq or prescription medicines as directed by your health care provider. If antibiotics were prescribed, take them as directed. Finish [...] a semi-upright position in a recliner or by using a couple pillows. Avoid cigarette smoke and lung irritants. If you smoke, quit. Stay inside when pollution and ozone levels are high. Stay current with vaccinations and immunizations. Follow up with your health care provider as directed. SEEK MEDICAL CARE IF: You cough up more thick, discolored mucus (sputum ) that is yellow to green in color. [...] get worse. Document Released: 03/05/2008 Document Revised: 01/09/2014 Document Reviewed: ExitCare Patient Information 2014 [facility]. No follow up information was provided. Extracted from: Title: Female Physical Author: Behzad Asif MD Date: 09/03/14 Impression and Plan Diagnosis At high risk for pneumonia (ICD9 V49.89, Discharge, Medical). Bronchiectasis (ICD9 494.0, Discharge, Medical). Colon cancer screening (ICD9 V76.51, Discharge, Medical). Elevated BP (ICD9 796.2, Discharge, Medical). Loss of weight (ICD9 783.21, Discharge, Medical). Lymphedema (ICD9 457.1, Discharge, Medical). Menopausal state (ICD9 627.2, Discharge, Medical). Status post hysterectomy (ICD9 V88.01, Discharge, Medical). Venous stasis dermatitis (ICD9 454.1, Discharge, Medical). Plan: You were not interested in getting mammograms or another colonoscopy. I recommend scheduling a bone density test and getting Shingles and Twinrix ( hepatitis A and B) vaccines at [facility]. Get lab today. Prevnar- 13 vaccine given today. Eat more protein. See me 3 months for a recheck, and as needed. I still recommend Vaseline to your ankles, and wearing support hose. , Medicare screening breast and pelvic exam done today.. Orders Orders (Selected) Outpatient Orders Ordered Office Visit Level 5 Est 73025: Pelvis and Breast exam- with or without exam G0101: pneumococcal 13-valent conjugate vaccine: 0.5 mL, IntraMuscular, Once Future (On Hold) CBC w/ Differential: CMP: DEXA Axial Skeleton, BD Bone Density: Fasting Lipid Profile: Occult Blood X 3, Stool: Routine Urinalysis: TSH 3rd Generation: . Dx/Order Association Plan: Diagnosis: At high risk for pneumonia Comment: Ordered: pneumococcal 13-valent conjugate vaccine; 0.5 mL, IntraMuscular, Once, Order Duration: 1 doses, First Dose: 09/03/14 9:00:00 CDT, Stop Date: 09/03/14 9:00:00 CDT, Form: Injection Office Visit Level 5 Est 69042; 09/03/14 8:03:00 CDT, Bronchiectasis | Lymphedema | Loss of weight | Elevated BP | Venous stasis dermatitis Diagnosis: Bronchiectasis Comment: Ordered: pneumococcal 13-valent conjugate vaccine; 0.5 mL, IntraMuscular, Once, Order Duration: 1 doses, First Dose: 09/03/14 9:00:00 CDT, Stop Date: 09/03/14 9:00:00 CDT, Form: Injection Office Visit Level 5 Est 45873; 09/03/14 8:03:00 CDT, Bronchiectasis | Lymphedema | Loss of weight | Elevated BP | Venous stasis dermatitis Diagnosis: Colon cancer screening Comment: Diagnosis: Elevated BP Comment: Ordered: Office Visit Level 5 Est 54049; 09/03/14 8:03:00 CDT, Bronchiectasis | Lymphedema | Loss of weight | Elevated BP | Venous stasis dermatitis Diagnosis: Loss of weight Comment: Ordered: Office Visit Level 5 Est 33194; 09/03/14 8:03:00 CDT, Bronchiectasis | Lymphedema | Loss of weight | Elevated BP | Venous stasis dermatitis Diagnosis: Lymphedema Comment: Ordered: Office Visit Level 5 Est 77748; 09/03/14 8:03:00 CDT, Bronchiectasis | Lymphedema | Loss of weight | Elevated BP | Venous stasis dermatitis Diagnosis: Menopausal state Comment: Ordered: Pelvis and Breast exam- with or without exam G0101; 09/03 8:03:00 CDT, 1, Status post hysterectomy | Menopausal state Office Visit Level 5 Est 07234; 09/03/14 8:03:00 CDT, Bronchiectasis | Lymphedema | Loss of weight | Elevated BP | Venous stasis dermatitis Diagnosis: Status post hysterectomy Comment: Ordered: Pelvis and Breast exam- with or without exam G0101; 09/03 8:03:00 CDT, 1, Status post hysterectomy | Menopausal state Office Visit Level 5 Est 82533; 09/03/14 8:03:00 CDT, Bronchiectasis | Lymphedema | Loss of weight | Elevated BP | Venous stasis dermatitis Diagnosis: Venous stasis dermatitis Comment: Ordered: Office Visit Level 5 Est 27034; 09/03/14 8:03:00 CDT, Bronchiectasis | Lymphedema | Loss of weight | Elevated BP | Venous stasis dermatitis Additional Orders: Comment: Future Orders: CBC w/ Differential,Blood, Routine Collect, 09/03/14 , Once, Lab Collect, Bronchiectasis, Order for future visit Future Orders: CMP,Blood, Routine Collect, 09/03/14, Once, Lab Collect, Loss of weight, Order for future visit Future Orders: DEXA Axial Skeleton, BD Bone Density,09/03/14, Routine, Reason: Menopausal or female climacteric states, Menopausal state | Status post hysterectomy Future Orders: Fasting Lipid Profile,Blood, Routine Collect, , Once, Lab Collect, Elevated BP, Order for future visit Future Orders: Occult Blood X 3, Stool,Stool, Routine collect, , Once, Nurse Collect Non-Blood, Loss of weight, Order for future visit Future Orders: Routine Urinalysis,Urine, Routine collect, 09/03/14 , Once, Nurse Collect Non-Blood, Loss of weight, Order for future visit Future Orders: TSH 3rd Generation,Blood, Routine Collect, 09/03/14 , Once, Lab Collect, Loss of weight, Order for future visit End of Orders ."
--- OUTSIDE RECORDS SUMMARY | 2016-09-22 17:04 | XMS REPORT | Referral Summary ---
Author Author [facility] [place], Family Medicine Organization [facility] [place] [facility] Address Unknown Phone Unavailable Care Team Providers Care Picture Booker Name Role Phone Yahaira Asif Primary Care Physician [phone] Encounter VC Date(s): 12/08/15 - 12/08/15 [facility] [place], [address] [place] [address]- Discharge Disposition: 01-Home or Self Care Attending Physician: Behzad Asif MD Admitting Physician: Behzad Asif MD Vital Signs Most recent to 1 oldest [Reference Range]: Temperature Tympanic 36.6 degC [36.6-38.1 degC] (12/08/15 7:53 AM) Peripheral Pulse 76 bpm Rate [60-100 bpm] (12/08/15 7:53 AM) Respiratory Rate 14 br/min [14-20 br/min] (12/08/15 7:53 AM) Blood Pressure 138/75 mmHg [90-140/60-90 mmHg] (12/08/15 7:53 AM) Problem List Condition Effective Dates Status [...] Patient Education Author: Behzad Asif MD Date: 12/07 Family Medicine Cholesterol Cholesterol is a white, [...] care provider. Document Released: 02/01/2002 Document Revised: 05/30/2015 Document Reviewed: ExitCare Patient Information 2016 [employer] [facility]. No follow up information was provided. Extracted from: Title: multiple medical problems Author: Behzad Asif MD Date: 12/08/15 Impression and Plan Diagnosis Pre-op testing (QVR31-FX Z01.818, Working, Medical). Hypercholesterolemia (VWQ62-KK E78.0, Working, Medical). Bronchiectasis (DYL21-ND J47.9, Working, Medical). Elevated BP (PKW18-SD R03.0, Working, Medical). Lymphedema (HSO61-YF I89.0, Working, Medical). 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 Venous insufficiency (PAR41-TF I87.2, Working, Medical). Plan: 1) Continue your present meds. 2) Your ECG was normal. 3) You may have eye surgery, as scheduled. You have medical clearance. 4) See me in 3 months and as needed.. Orders Orders (Selected) Outpatient Orders Ordered Electrocardiogram, Routine Ecg With At Least 12 Leads; Interpretation And Report Only 18064: Office Visit Level 4 Est 34595: . Dx/Order Association Plan: Diagnosis: Adult idiopathic generalized osteoporosis Comment: Ordered: Office Visit Level 4 Est 97690; 12/08/15 8:12:00 CDT, Adult idiopathic generalized osteoporosis | Bronchiectasis | Elevated BP | Lymphedema | Venous insufficiency Diagnosis: Bronchiectasis Comment: Ordered: Office Visit Level 4 Est 48830; 12/08/15 8:12:00 CDT, Adult idiopathic generalized osteoporosis | Bronchiectasis | Elevated BP | Lymphedema | Venous insufficiency Diagnosis: Elevated BP Comment: Ordered: Office Visit Level 4 Est 79520; 12/08/15 8:12:00 CDT, Adult idiopathic generalized osteoporosis | Bronchiectasis | Elevated BP | Lymphedema | Venous insufficiency Diagnosis: Hypercholesterolemia Comment: Ordered: Electrocardiogram, Routine Ecg With At Least 12 Leads; Interpretation And Report Only [id number]; 12/08/15 8:10:00 CDT, 1, Pre-op testing | Hypercholesterolemia Diagnosis: Lymphedema Comment: Ordered: Office Visit Level 4 Est 81557; 12/08/15 8:12:00 CDT, Adult idiopathic generalized osteoporosis | Bronchiectasis | Elevated BP | Lymphedema | Venous insufficiency Diagnosis: Pre-op testing Comment: Ordered: Electrocardiogram, Routine Ecg With At Least 12 Leads; Interpretation And Report Only [id number]; 12/08/15 8:10:00 CDT, 1, Pre-op testing | Hypercholesterolemia Diagnosis: Venous insufficiency Comment: Ordered: Office Visit Level 4 Est 88999; 12/08/15 8:12:00 CDT, Adult idiopathic generalized osteoporosis | Bronchiectasis | Elevated BP | Lymphedema | Venous insufficiency End of Orders ."
--- OUTSIDE RECORDS SUMMARY | 2016-09-22 17:04 | XMS REPORT | Referral Summary ---
Author Author [facility] [place], Family Medicine Organization [facility] [place] [facility] Address Unknown Phone Unavailable Care Team Providers Care Validation Architect Name Role Phone Yahaira Asif Primary Care Physician [phone] Encounter VC Date(s): 12/17/14 - 12/17/14 [facility] [place], [address] [place] [address] Discharge Disposition: 01-Home or Self Care Attending Physician: Behzad Asif MD Admitting Physician: Behzad Asif MD Referring Physician: Behzad Asif MD Vital Signs Most recent to 1 oldest [Reference Range]: Temperature Tympanic 36.4 degC [36.6-38.1 degC] *LOW* (12/17/14 6:57 AM) Peripheral Pulse 70 bpm Rate [60-100 bpm] (12/17/14 6:57 AM) Blood Pressure 137/62 mmHg [90-140/60-90 mmHg] (12/17/14 6:57 AM) Problem List Condition Effective Dates Status [...] oral tablet 70 mg 1 tabs, Oral, q7day, with 6 to 8 ounces plain water, at least 30 minutes before first food, beverage, or medication of the day, # 4 tabs, 11 Refill(s), Pharmacy: [facility] #[id number], 1 tabs Oral q7day,Instr:with 6 to 8 ounces plain water, a... Start Date: 06/06/15 Status: Ordered ibuprofen 200 mg oral tablet [...] Patient Education Author: Behzad Asif MD Date: 12/17 Family Medicine Bronchiectasis Bronchiectasis is a condition [...] INSTRUCTIONS Get plenty of rest. Only take vavt-vme-otbrwrt or prescription medicines as directed by your [...] Released: 03/05/2008 Document Revised: 05/14/2014 Document Reviewed: ExitCare Patient Information 2015 [email or web address]. This information is not intended to replace advice given to you by your health care provider. Make sure you discuss any questions you have with your health care provider. No follow up information was provided. Extracted from: Title: osteoporosis, edema Author: Behzad Asif MD Date: 12/17/14 Impression and Plan Diagnosis Adult idiopathic generalized osteoporosis (ICD9 733.02, Working, Medical). Bronchiectasis (ICD9 494.0, Working, Medical). Hypercholesterolemia (ICD9 272.0, Working, Medical). Lymphedema (ICD9 457.1, Working, Medical). Venous stasis dermatitis (ICD9 454.1, Working, Medical). Plan: Continue your current Meds and treatments. Wear support hose. Healthy diet and daily exercise is helpful. See me in 6 months and as needed. . Orders Orders (Selected) Outpatient Orders Ordered Office Visit Level 4 Est 94386: . Dx/Order Association Plan: Diagnosis: Adult idiopathic generalized osteoporosis Comment: Ordered: Office Visit Level 4 Est 94523; 12/17/14 7:19:00 CDT, Adult idiopathic generalized osteoporosis | Hypercholesterolemia | Lymphedema | Venous stasis dermatitis | Bronchiectasis Diagnosis: Bronchiectasis Comment: Ordered: Office Visit Level 4 Est 31446; 12/17/14 7:19:00 CDT, Adult idiopathic generalized osteoporosis | Hypercholesterolemia | Lymphedema | Venous stasis dermatitis | Bronchiectasis Diagnosis: Hypercholesterolemia Comment: Ordered: Office Visit Level 4 Est 20072; 12/17/14 7:19:00 CDT, Adult idiopathic generalized osteoporosis | Hypercholesterolemia | Lymphedema | Venous stasis dermatitis | Bronchiectasis Diagnosis: Lymphedema Comment: Ordered: Office Visit Level 4 Est 88150; 12/17/14 7:19:00 CDT, Adult idiopathic generalized osteoporosis | Hypercholesterolemia | Lymphedema | Venous stasis dermatitis | Bronchiectasis Diagnosis: Venous stasis dermatitis Comment: Ordered: Office Visit Level 4 Est 45547; 12/17/14 7:19:00 CDT, Adult idiopathic generalized osteoporosis | Hypercholesterolemia | Lymphedema | Venous stasis dermatitis | Bronchiectasis End of Orders ."
--- NOTE | 2016-09-22 17:05 | ERPDOC ---
Departure Disposition Decision Date: September 22, 2016 Disposition Decision Time: 18:03 Disposition: 01 DISCHARGED HOME, SELF-CARE Impression Impression Impression: Primary Impression: Hematoma Additional Impression: Minor head injury without loss of consciousness Condition: Stable Seen By: Mid-level only Referrals: KEISHA CORCORAN MD (Family) Follow up as needed. Patient Instructions: Hematoma (ED) Problems/Meds/Labs Reviewed?: Yes Medications reviewed and manag: Yes Additional Instructions: HEAD INJURY INSTRUCTIONS: Observe the patient for 24-48 hours. Contact your family physician or return to the Emergency Department IMMEDIATELY if ANY of the following are observed. Repeated vomiting. Confusion, delirium, or disorientation. Blurred vision or double vision. A difference in pupil size comparing left to right. Twitching or convulsions. Clear or bloody fluid from the nose or ears. Persistent headaches. Weakness of face, arm or leg muscles. Difficulty in rousing patient (the patient should always be awakened every 2 hours during the first night). Take nothing stronger than Tylenol or Advil for pain. Avoid alcohol intake. No contact sports, or strenuous activity until cleared by follow-up provider. Follow up care ordered?: Yes Mental Status: Alert, Oriented HPI - General Medical General Chief Complaint: General Stated Complaint: BRICK FELL ON HEAD Time Seen by Provider: 17:05 Source: patient Exam Limitations: no limitations HPI - General Medical Initial Comments patient here after she reports a brick fell and landed on the top of her head at 2:30 pm. Patient was trying to gain access to her attic and was on a ladder and reaching above head when a brick fell and hit her on the head. No LOC but patient does have a headache and hematoma. She did call her PCP's office and he was not in the office. The office nurse recommended patient come for evaluation. Patient denies dizziness, N/V but does have a mild headache. Patient drove herself here. Occurred At: home Onset: Rapid Duration: 4-6 hrs Associated Symptoms: DENIES: chest pain, cough, diaphoresis, fever/chills Hx of Similar Symptoms: No Allergies: Coded Allergies: acetaminophen (Verified Allergy, Unknown, 09/22/16) hydrocodone (Verified Allergy, Unknown, 09/22/16) Past History Past Medical History Pt denies signifigant PMH Hx Echocardiogram: No Surgical History Denies Surgeries Reproductive/: hysterectomy Vaccines Hx Influenza Vaccination: No Hx Pneumococcal Vaccination: No Social History Smoking Status: Never smoker Housing: house Review of Systems Constitutional Constitutional: see HPI, DENIES: chills, fever Eyes General: DENIES: burning, itching, pain Lids/Accessories: DENIES: swelling ENMT Ears: DENIES: pain Hearing: DENIES: tinnitus Balance: DENIES: vertigo Sinuses: DENIES: congestion, rhinorrhea Mouth/Throat: DENIES: scratchy throat, sore throat Cardiovascular Cardiac: DENIES: chest pain, orthopnea Rhythm/Rate: DENIES: tachycardia Pulmonary Respiratory: DENIES: cough, dyspnea, pleuritic chest pain, tachypnea GI Upper Abdomen: DENIES: nausea, pain Lower Abdomen: DENIES: diarrhea, pain, see HPI General: DENIES: dysuria, frequency, urgency Integumentary Skin: DENIES: itching, rash Neurological General: headache, see HPI, DENIES: blackouts, change in strength, fainting, memory disturbances, numbness, poor coordination, seizures, syncope, weakness Psychiatric Psychiatric: DENIES: depression, emotional instability, nervousness Hematologic/Lymphatic Hematologic/Lymphatic: DENIES: anemia, easy bruising All other Systems All Other Systems: Reviewed and Negative Physical Exam General General Nourishment: well nourished, well developed, appears stated age, no acute distress, adult General Body Habitus: well groomed Vitals and Pain First Documented Vital Signs Date Time Temp Pulse Resp B/P Pulse Ox O2 Delivery O2 Flow Rate FiO2 09/22/16 17:02 98.1 75 18 152/72 95 Room Air Weight: Kilograms: Height (feet): 5 Height (inches): 1 Triage Pain Scale: Normal Exams: Eyes: Pupils are PERRLA w/ EOMI, No scleral icterus, irritation, or foreign bodies noted ENMT: No facial trauma, nasal exudates, pharyngeal erythema, or exudates are noted Dental: No fractured, loose, or missing teeth noted Neck: Full range of motion, without adenopathy, JVD, bruits or thyromegaly Chest/Resp: Clear all mukherjee, with good airflow, and symmetry bilaterally CV: Regular rate and rhythm, without murmur or gallop, Pulses 2+ all extremities, capillary refill, <2 seconds all ext., no pedal edema noted Abdomen: Bowel sounds positive : Vulva without rashes Lymphatic: No lymphadenopathy Musculoskeletal: No tenderness, or deformity noted, good range of motion, all extremities Integumentary: No rashes, hives, or bruising noted, hair and nails, without abnormality Neurologic: Patient is alert, and oriented, cranial nerves, motor/sensory/ cerebellar, exams w/o gross deficits, to observation Psychiatric: Patient exhibits, appropriate attention, emotion and affect Fastrak Face/Scalp Head: symmetric, NOT FOUND: step-off Scalp: other (2 cm x 2 cm hematoma to top /center of head ), NOT FOUND: laceration Differential Diagnoses Considering: Other (concussion, CHI, subdural bleed, ) Progress Results/Orders Orders Procedure Category Date Status Time Ct Head W/O Contrast CT 09/22/16 Logged Progress Progress Patient remains steady on her feet. complains of mild headache but denies the need for medication. Head CT negative for acute abnormality VALERIA HERNANDEZ APRN September 22, 2016 17:05
--- NOTE | 2016-09-22 17:24 | NUR ---
CT PATIENT TO CT PER CART,STABLE.
--- NOTE | 2016-09-22 17:32 | NUR ---
RETURN PATIENT BACK FROM CT PER CART, STABLE.
[2016-09-22] MEDS ORDERED: ALEN70TA2 PO (17:40)
--- NOTE | 2016-09-22 17:52 | NUR ---
ELIMINATION PATIENT UP TO BR TO VOID. NO DIZZINESS NOTED.
--- OUTSIDE RECORDS SUMMARY | 2016-09-22 17:57 | XMS REPORT | Continuity of Care Document ---
Author Author [facility] Organization [facility] Address Unknown Phone Unavailable Allergies Medications Problems Procedures Results Encounters ACCT No. Visit Date/Time Discharge Status Pt. Type Provider Facility Loc./Unit Complaint [id number] 08/22/2013 10:43:00 08/22/2013 23 :59:59 CLS Outpatient [id number] 08/06/2013 13:45:00 08/06/2013 23 :59:59 CLS Outpatient [id number] 07/21/2013 09:18:00 07/21/2013 23 :59:59 CLS Outpatient
[2016-09-22 18:17] VITALS: BP 167/74; PULSE 67; RESP 18; TEMP 98.2; O2SAT 99
--- NOTE | 2016-09-22 18:17 | NUR ---
DISCHARGE PT GIVEN INSTRUCTIONS FOR CONT CARE OF HEMATOMA, PT VERBALIZED UNDERSTANDING OF CONTENT AND SIGNED FORM. PT LEFT ER AMBULATORY AT SCENE ALERT, VS CHARTED IN NO ACUTE DISTRESS.
--- NOTE | 2016-09-23 07:53 | DI ---
Indication: ITS.REASON: sherley fell on head PROCEDURE: CT HEAD W/O CONTRAST: Encounter: Initial Comparison: None Technique: Axial CT images through the head were performed without contrast. Iterative Reconstruction dose reducing technique was utilized. FINDINGS: The ventricles are of normal size, shape, and configuration for the patient's age. There is no evidence of acute intracranial hemorrhage, midline displacement, or mass effect. There are scattered areas of low attenuation in the white matter which most likely represent changes of chronic microvascular ischemia. The CT attenuation of the brain parenchyma is otherwise normal within the cerebellum, brain stem, and cerebral hemispheres. The tympanic cavities and mastoid air cells are free of appreciable disease. There are no definite fractures of the skull base, calvarium, or visualized portion of the midface. IMPRESSION: No CT evidence of acute traumatic intracranial injury. There is a preliminary report by [facility]. .
== END 2016-09-22 18:17 | disposition home or self-care (01) ==
LOC: ED 16:59
DX: S00.03XA Contusion of scalp, initial encounter (principal); W20.8XXA Other cause of strike by thrown, projected or falling object, initial encounter; Y93.89 Activity, other specified; Y92.018 Other place in single-family (private) house as the place of occurrence of the external cause; Y99.8 Other external cause status